=== PATIENT | female | born 1955 | race Two or more races ===

== ENCOUNTER → 2016-09-23 | Outpatient (CLI) | payer OTHER ==
--- NOTE | 2016-09-23 12:00 | RADRPT ---
PROCEDURE: XR left knee. CLINICAL INDICATION: Knee pain TECHNIQUE: AP weightbearing, PA weightbearing, lateral weightbearing and sunrise views are availab le for review. 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 There is mild osteoarthrosis involving the patellofemoral compartment. This is associated with minimal osteophytos is. There is a small suprapatellar joint effusion The osseous structures are otherwise normal in mineralization, architecture and alignment. No fract ures are identified. No osseous lesions are identified. The soft tissues are unremarkable. 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 Mild osteoarthrosis involving the patellofemoral compartment. Small suprapatellar joint effusion RPTAT: [facility] .Reggie Costa MD, Date Time Electronically viewed and signed by .Reggie Costa MD, on 09/23/2016 12:00 .B/
== END | disposition home or self-care (01) ==
LOC: HKI 09:34
PROVIDERS: ATTEND Orthopaedic Surgery
DX: M17.12 Unilateral primary osteoarthritis, left knee (principal); M25.562 Pain in left knee; S83.232A Complex tear of medial meniscus, current injury, left knee, initial encounter; X58.XXXA Exposure to other specified factors, initial encounter
CPT/HCPCS: 73564; Z7500; G0463

== ENCOUNTER 2017-10-14 07:21 | Day surgery (SDC) | END 2017-10-14 13:21 | disposition home or self-care (01) ==